=== PATIENT | female | born 1960 | race Two or more races ===

== ENCOUNTER 2016-12-14 16:34 | Emergency (ER) | payer OTHER ==
[~2016-12-14] VITALS: Ht 149.9 cm; Wt 60.0 kg
[2016-12-14 17:50] VITALS: BP 139/71
== END 2016-12-14 18:56 | disposition home or self-care (01) ==
LOC: ED 18:30
DX: T18.128A Food in esophagus causing other injury, initial encounter (principal); E11.9 Type 2 diabetes mellitus without complications; R13.10 Dysphagia, unspecified
CPT/HCPCS: 71020